=== PATIENT | female | born 1970 ===

== ENCOUNTER 2021-09-20 06:29 | Day surgery (SDC) | payer OTHER ==
[~2021-09-20 06:29] MED LIST: SYNTHROID112 MCG PO
== END 2021-09-20 15:50 | disposition home or self-care (01) ==
LOC: CIR.AMB 06:29
PROVIDERS: ATTEND Obstetrics & Gynecology Maternal & Fetal Medicine
DX: D25.0 Submucous leiomyoma of uterus (principal); N72 Inflammatory disease of cervix uteri; Z88.6 Allergy status to analgesic agent; E03.9 Hypothyroidism, unspecified